=== PATIENT | female | born 1990 | race Caucasian/White ===

== ENCOUNTER → 2023-05-27 09:37 | Outpatient (CLI) | payer OTHER, SELFPAY ==
--- NOTE | ~2023-05-27 | XR_ITS ---
EXAM: XR sacroiliac joints min 3V DATE: 05/27/2023 10:17 HISTORY: low back pain . COMPARISON: None available. FINDINGS: Normal mineralization. No fracture or dislocation. No lytic or blastic lesion. Joint space s are maintained. Osteitis condensans ilii, a normal benign finding. No erosion or periosteal change. Soft tissues within normal limits. IMPRESSION: Unremarkable sinus radiograph findings. Reviewed, dictated and finalized at location K. KEEPER
--- NOTE | ~2023-05-27 | XR_ITS ---
EXAM: XR lumbar spine 2-3V DATE: 05/27/2023 10:17 HISTORY: low back pain . COMPARISON: None available. FINDINGS: 5 nonrib-bearing lumbar-type vertebral bodies. Pedicles intact. Normal vertebral body alig nment. Vertebral body heights preserved. Mild height loss at L5-S1, remaining disc spaces maintained. Mild facet hypertrophy and sclerosis at L5-S1. No fracture or dislocation. IMPRESSION: Mild degenerative disc disease and facet arthropathy at L5-S1. Reviewed, dictated and finalized at location K. E WORKER
== END ==
PROVIDERS: PCP Nurse Practitioner Family; Visit Provider Nurse Practitioner Family
DX: M54.50 Low back pain, unspecified (principal); M51.37 Other intervertebral disc degeneration, lumbosacral region; M12.88 Other specific arthropathies, not elsewhere classified, other specified site
CPT/HCPCS: 72100; 72202